=== PATIENT | male | born 1975 | race Caucasian/White ===

== ENCOUNTER 2016-07-28 08:42 | Day surgery (SDC) | payer BC ==
[~2016-07-28 08:42] MED LIST: RINGERS SOLUTION,LACTATED 1,000 ML IV PRN
--- OUTSIDE RECORDS SUMMARY | 2016-07-28 08:46 | XMS REPORT | Continuity of Care Document ---
:1975 Author Organization [facility] ([facility]) Address [address] [place] [address] Phone [phone] Care Team Providers Name Role Phone Provider, No-Primary Care Primary Care Provider Unavailable Source Comments This disclosure is being made pursuant to the Care Everywhere program, applicable federal and state laws, and may not contain all informaitonavailable regarding this patient.[facility] ([facility]) Active Allergies and Adverse Reactions Not on File Current Medications Not on file Active Problems Not on file Social History Tobacco Use Types Packs/Day Years Used Date Never Assessed Plan of Care Health Maintenance Due Date Last Done Comments Hepatitis B Vaccine (1 of 3 - Primary Series) 1975 Tdap Vaccine 1988 Lipid Disorder Screening 06/05/1995 MMR Vaccine 06/05/1995 Td Vaccine 06/05/1995 Influenza Vaccine: Seasonal (#1) 09/20/2015 Results from Last 3 Months Not on file
[2016-07-28] MEDS ORDERED: RINGERS SOLUTION,LACTATED 1,000 ML IV ONE (09:00)
--- NOTE | 2016-07-28 10:26 | OR ---
Operative Report - Dictated Report Narrative: Date 07/28/2016 Preoperative diagnosis: GERD Postoperative diagnosis: Antritis, gastropathy, esophagitis-distal Procedure: Esophagogastroduodenoscopy with biopsy Staff surgeon: Edin Jacobsen MD Proctoring surgeon: Constantine Bailon MD Anesthesia: MAC per TECHNICIAN EBL: minimal Specimen: CLOtest, antral biopsy for anatomic path Description: After informed consent the bite-block was inserted and IV sedation was administered per TECHNICIAN flexible video and the endoscope was inserted through the bite block, through the posterior pharynx, and into the esophagus under direct vision. The scope was then advanced through the esophagus stomach and into the duodenum. The duodenum was grossly normal without ulceration. The scope was withdrawn into the stomach. There was antritis with small punctate hemorrhages and this was biopsied with cold forceps for anatomic pathology. A separate biopsy with cold forceps was performed for CLOtest. The body of the stomach was inspected and was normal retroflexion of the scope within the stomach was normal other than the gastropathy. The endoscope was withdrawn into the distal esophagus and there was distal esophagitis without erosion. The remainder of the esophagus was unremarkable. The patient tolerated procedure well and was discharged from the endoscopy suite in stable condition. Recommendations: Continue acid suppression. Repeat EGD will be when necessary.
[2016-07-28 10:58] VITALS: BP 126/76
== END 2016-07-28 08:43 | disposition home or self-care (01) ==
LOC: AMB 08:42
PROVIDERS: ATTEND Specialist
PROC: 0DB68ZX Excision of Stomach, Via Natural or Artificial Opening Endoscopic, Diagnostic (ICD-10-PCS; principal; 2016-07-28 09:25)
DX: K29.60 Other gastritis without bleeding (principal); K21.0 Gastro-esophageal reflux disease with esophagitis; Z87.891 Personal history of nicotine dependence; Z68.30 Body mass index [BMI] 30.0-30.9, adult